=== PATIENT | male | born 1975 | race African-American/Black ===

== ENCOUNTER 2017-02-19 11:15 | Emergency (ER) | payer OTHER ==
[~2017-02-19 11:15] MED LIST: ADULT LOW DOSE81 MG PO; ASPIRIN 325MG325 MG PO; BRILINTA90 MG PO; COREG 3.125M3.125 MG PO; ELAVIL 10 MG TA10 MG PO; FENOFIBRATE54 MG PO; HUMALOG100 UNIT/3 SQ; LEVEMIR100 UNIT/1 SQ; NEURONTIN 300300 MG PO; SIMVASTATIN10 MG PO; ZANTAC150 MG PO; ZOCOR40 MG PO
[2017-04-23] MEDS ORDERED: METOPROLOL TART50 MG PO (15:19)
[2017-04-23] MEDS ORDERED: CRESTOR40 MG PO (15:22)
[2017-04-23] MEDS ORDERED: BASAGLAR SQ (15:23)
[2017-04-23] MEDS ORDERED: LISINOPRIL20 MG PO (15:36)
== END 2017-02-19 14:01 | disposition home or self-care (01) ==
LOC: ER1 11:15
DX: K02.9 Dental caries, unspecified (principal); L03.211 Cellulitis of face; E11.65 Type 2 diabetes mellitus with hyperglycemia; I10 Essential (primary) hypertension; Z95.5 Presence of coronary angioplasty implant and graft
CPT/HCPCS: 82962; 96372; 99283

== ENCOUNTER 2021-01-19 19:43 | Emergency (ER) | payer MEDICARE, OTHER ==
[~2021-01-19 19:43] MED LIST changes: +ASPIR 8181 MG PO; +AUGMENTIN 875-1 EACH PO; +BASAGLAR SQ; +BENTYL 10MG CAP10 MG PO; +CHRONULAC20 GM/30 M PO; +COLACE 100MG C100 MG PO; +COLACE100 MG PO; +CRESTOR40 MG PO; +CYCLOBENZAPRINE10 MG PO; +CYCLOBENZAPRINE5 MG PO; +DEX4 GLUCOSE4 GM PO; +FISH OIL 1,0001 EACH PO; +FISH OIL 1,2001 EAC1 PO; +IBU800 MG PO; +ISMO TAB 20 MG20 MG PO; +KEFLEX CAP 500500 MG PO; +LASIX40 MG PO; +LOPRESSOR 25 MG25 MG PO; +LOVENOX30 MG/0.3 SQ; +NEURONTIN600 MG PO; +NITROSTAT0.4 MG SL; +NOVOLOG100 UNIT/1 SC; +PRINIVIL5 MG PO; +TRESIBA FL100 UNIT/1 SQ; +VITAMIN C500 M4 PO; +VITAMIN D31250 MCG PO; +ZOFRAN 4 MG TAB4 MG PO
[2021-01-19 21:32] LABS: HEMOGLOBIN 15.1 gm/dl (14.0-17.5); RED BLOOD COUNT 5.04 M/UL (4.20-5.50); WHITE BLOOD COUNT 6.3 K/UL (4.5-11.0)
[2021-01-19 21:50] LABS: BUN/CREATININE RATIO 14 (0-10)
[2021-01-19] MEDS ORDERED: DULCOLAX5 MG PO (22:10)
[2021-01-20] MEDS ORDERED: SILVADENE CREAM20 GM TOP (09:09)
[2021-01-20] MEDS ORDERED: BACTRIM DS TAB1 EACH PO (09:09)
[2021-01-20] MEDS ORDERED: MOTRIN IB200 MG PO (09:10)
[2021-01-20] MEDS ORDERED: AMMONIUM LACTA140 GM TP (09:10)
[2021-01-20] MEDS ORDERED: NOVOLOG FL100 UNIT/1 INJ (10:10)
[2021-01-20] MEDS ORDERED: CYCLOBENZAPRINE5 MG PO (10:19)
[2021-01-20] MEDS ORDERED: CRESTOR40 MG PO (10:21)
[2021-01-20] MEDS ORDERED: TRESIBA FL100 UNIT/1 SQ (17:38)
[2021-02-11] MEDS ORDERED: DOXYCYCLINE HY100 MG PO (11:13)
== END 2021-01-19 22:41 | disposition home or self-care (01) ==
LOC: ER1 19:43
PROVIDERS: Physician Assistant
DX: R10.84 Generalized abdominal pain (principal); N32.89 Other specified disorders of bladder; K59.00 Constipation, unspecified; M54.5 Low back pain; I25.2 Old myocardial infarction; E11.9 Type 2 diabetes mellitus without complications; Z79.4 Long term (current) use of insulin; Z79.899 Other long term (current) drug therapy
CPT/HCPCS: 80053; 81001; 83690; 85025; 99284; J2785

== ENCOUNTER 2021-01-20 04:21 | Observation (INO) | payer MEDICARE, OTHER ==
[~2021-01-20] VITALS: Ht 172.7 cm; Wt 86.2 kg
[~2021-01-20 04:21] MED LIST changes: +DULCOLAX5 MG PO
[2021-01-20 05:03] LABS: HEMOGLOBIN 15.2 gm/dl (14.0-17.5); RED BLOOD COUNT 5.04 M/UL (4.20-5.50); WHITE BLOOD COUNT 6.7 K/UL (4.5-11.0)
[2021-01-20 05:30] LABS: BUN/CREATININE RATIO 12 (0-10)
[2021-01-20] MEDS ORDERED: SILVADENE CREAM20 GM TOP (09:09)
[2021-01-20] MEDS ORDERED: BACTRIM DS TAB1 EACH PO (09:09)
[2021-01-20] MEDS ORDERED: AMMONIUM LACTA140 GM TP (09:10)
[2021-01-20] MEDS ORDERED: MOTRIN IB200 MG PO (09:10)
[2021-01-20] MEDS ORDERED: NOVOLOG FL100 UNIT/1 INJ (10:10)
[2021-01-20] MEDS ORDERED: CYCLOBENZAPRINE5 MG PO (10:19)
[2021-01-20] MEDS ORDERED: CRESTOR40 MG PO (10:21)
[2021-01-20] MEDS ORDERED: TRESIBA FL100 UNIT/1 SQ (17:38)
[2021-01-21 05:35] LABS: BUN/CREATININE RATIO 13 (0-10)
[2021-01-21 05:39] LABS: HEMOGLOBIN 13.8 gm/dl (14.0-17.5); RED BLOOD COUNT 4.8 M/UL (4.20-5.50); WHITE BLOOD COUNT 7.5 K/UL (4.5-11.0)
[2021-01-21] MEDS ORDERED: HUMALOG 10100 UNITS/ SC (17:27)
[2021-01-21] MEDS ORDERED: LANTUS INS100 UTS/M1 SC (17:27)
[2021-02-11] MEDS ORDERED: DOXYCYCLINE HY100 MG PO (11:13)
== END 2021-01-21 21:18 | disposition other institution (70) ==
LOC: ER1 04:21 → CDU 08:33 → MED SURG 4 08:33 → CDU 08:33 → MED SURG 4 15:26
PROVIDERS: Emergency Medicine; Internal Medicine Cardiovascular Disease; Physician Assistant Medical; ADMIT Internal Medicine
PROC: 4A023N7 Measurement of Cardiac Sampling and Pressure, Left Heart, Percutaneous Approach (ICD-10-PCS; principal; 2021-01-20)
PROC: B2111ZZ Fluoroscopy of Multiple Coronary Arteries using Low Osmolar Contrast (ICD-10-PCS; 2021-01-20)
PROC: B2151ZZ Fluoroscopy of Left Heart using Low Osmolar Contrast (ICD-10-PCS; 2021-01-20)
DX: I25.10 Atherosclerotic heart disease of native coronary artery without angina pectoris (principal); T82.855A Stenosis of coronary artery stent, initial encounter; I11.0 Hypertensive heart disease with heart failure; I50.22 Chronic systolic (congestive) heart failure; I25.5 Ischemic cardiomyopathy; E78.5 Hyperlipidemia, unspecified; R91.1 Solitary pulmonary nodule; K59.00 Constipation, unspecified; E11.65 Type 2 diabetes mellitus with hyperglycemia; E11.621 Type 2 diabetes mellitus with foot ulcer; L97.519 Non-pressure chronic ulcer of other part of right foot with unspecified severity; R59.9 Enlarged lymph nodes, unspecified; Z89.411 Acquired absence of right great toe; Z91.018 Allergy to other foods; Z87.891 Personal history of nicotine dependence; Z79.4 Long term (current) use of insulin; Z79.82 Long term (current) use of aspirin; Z20.822 Contact with and (suspected) exposure to COVID-19; Z95.5 Presence of coronary angioplasty implant and graft; Y83.2 Surgical operation with anastomosis, bypass or graft as the cause of abnormal reaction of the patient, or of later complication, without mention of misadventure at the time of the procedure
CPT/HCPCS: 36415; 71045; 71275; 78452; 80048; 80053; 80061; 82550; 82553; 82962; 83036; 83690; 83735; 83874; 84100; 84484; 85025; 85379; 85610; 85730; 93005; 93017; 93925; 94664; 94760; 96374; 96375; 99152; 99153; 99285; A9502; C1769; C1894; G0378; J1644; J2250; J2270; J2405; J2785; J3010; J7040; J7070; Q9967; U0002

== ENCOUNTER 2021-02-06 12:28 | Emergency (ER) | payer MEDICARE, OTHER ==
[~2021-02-06 12:28] MED LIST changes: +AMMONIUM LACTA140 GM TP; +BACTRIM DS TAB1 EACH PO; +HUMALOG 10100 UNITS/ SC; +LANTUS INS100 UTS/M1 SC; +MOTRIN IB200 MG PO; +NOVOLOG FL100 UNIT/1 INJ; +SILVADENE CREAM20 GM TOP
[2021-02-06 12:56] LABS: HEMOGLOBIN 9.8 gm/dl (14.0-17.5); RED BLOOD COUNT 3.34 M/UL (4.20-5.50); WHITE BLOOD COUNT 13.5 K/UL (4.5-11.0)
[2021-02-06 13:19] LABS: BUN/CREATININE RATIO 17 (0-10)
[2021-02-11] MEDS ORDERED: DOXYCYCLINE HY100 MG PO (11:13)
== END 2021-02-06 17:20 | disposition home or self-care (01) ==
LOC: ER1 12:28
PROVIDERS: Emergency Medicine
DX: R07.9 Chest pain, unspecified (principal); I25.10 Atherosclerotic heart disease of native coronary artery without angina pectoris; E11.9 Type 2 diabetes mellitus without complications; I10 Essential (primary) hypertension; Z95.1 Presence of aortocoronary bypass graft
CPT/HCPCS: 71045; 80053; 82550; 82553; 83690; 84484; 85025; 85610; 85730; 96374; 96375; 99285; J2270; J2405; Q9967

== ENCOUNTER 2021-02-09 12:51 | Observation (INO) | payer MEDICARE, OTHER ==
[~2021-02-09] VITALS: Ht 172.7 cm; Wt 80.3 kg
[2021-02-09 13:46] LABS: HEMOGLOBIN 10.4 gm/dl (14.0-17.5); RED BLOOD COUNT 3.66 M/UL (4.20-5.50); WHITE BLOOD COUNT 10.9 K/UL (4.5-11.0)
[2021-02-09 15:08] LABS: BUN/CREATININE RATIO 15 (0-10)
[2021-02-09] MEDS ORDERED: COLCHICINE0.6 M1 PO (19:50)
[2021-02-09] MEDS ORDERED: CLOPIDOGREL75 MG PO (19:50)
[2021-02-09] MEDS ORDERED: PROTONIX 40 MG40 M1 PO (19:51)
[2021-02-10 09:19] LABS: HEMOGLOBIN 9.5 gm/dl (14.0-17.5); WHITE BLOOD COUNT 8.8 K/UL (4.5-11.0)
[2021-02-10 09:27] LABS: RED BLOOD COUNT 3.25 M/UL (4.20-5.50)
[2021-02-10 09:34] LABS: BUN/CREATININE RATIO 15 (0-10)
[2021-02-10] MEDS ORDERED: NOVOLOG FL100 UNIT/1 INJ (21:57)
[2021-02-10] MEDS ORDERED: HYDROCODONE-AC1 EACH PO (21:58)
[2021-02-11 05:27] LABS: HEMOGLOBIN 9.8 gm/dl (14.0-17.5); RED BLOOD COUNT 3.38 M/UL (4.20-5.50); WHITE BLOOD COUNT 10.1 K/UL (4.5-11.0)
[2021-02-11 05:50] LABS: BUN/CREATININE RATIO 15 (0-10)
[2021-02-11] MEDS ORDERED: DOXYCYCLINE HY100 MG PO (11:13)
== END 2021-02-11 13:07 | disposition home or self-care (01) ==
LOC: ER1 12:51 → PROG CARE 18:27 → CDU 18:27 → PROG CARE 23:51
PROVIDERS: Emergency Medicine; ADMIT Internal Medicine
DX: J18.9 Pneumonia, unspecified organism (principal); J90 Pleural effusion, not elsewhere classified; E11.65 Type 2 diabetes mellitus with hyperglycemia; I25.10 Atherosclerotic heart disease of native coronary artery without angina pectoris; E11.40 Type 2 diabetes mellitus with diabetic neuropathy, unspecified; I10 Essential (primary) hypertension; E78.5 Hyperlipidemia, unspecified; R91.1 Solitary pulmonary nodule; I42.9 Cardiomyopathy, unspecified; M10.9 Gout, unspecified; Z20.822 Contact with and (suspected) exposure to COVID-19; Z95.1 Presence of aortocoronary bypass graft; Z91.018 Allergy to other foods; Z87.891 Personal history of nicotine dependence; Z87.19 Personal history of other diseases of the digestive system; Z89.431 Acquired absence of right foot; Z79.82 Long term (current) use of aspirin; Z79.02 Long term (current) use of antithrombotics/antiplatelets; Z79.4 Long term (current) use of insulin; Z79.899 Other long term (current) drug therapy
CPT/HCPCS: ECHO; 36415; 70450; 71045; 80053; 80202; 80307; 81001; 82550; 82553; 82962; 83605; 83735; 83874; 83880; 84443; 84484; 85025; 85379; 85610; 85730; 86140; 87040; 87086; 93005; 93270; 93306; 95816; 96372; 96374; 96375; 96376; 99285; G0378; J0692; J1650; J1885; J2405; J3370; J7030; J7050; J7070; Q9967; U0002

== ENCOUNTER 2021-10-16 12:27 | Observation (INO) | payer MEDICARE, OTHER ==
[~2021-10-16] VITALS: Ht 172.7 cm; Wt 86.2 kg
[~2021-10-16 12:27] MED LIST changes: +CLOPIDOGREL75 MG PO; +COLCHICINE0.6 M1 PO; +DOXYCYCLINE HY100 MG PO; -ELAVIL 10 MG TA10 MG PO; +HYDROCODONE-AC1 EACH PO; +PROTONIX 40 MG40 M1 PO
[2021-10-16 13:51] LABS: HEMOGLOBIN 15.4 gm/dl (14.0-17.5); RED BLOOD COUNT 5.24 M/UL (4.20-5.50); WHITE BLOOD COUNT 9.9 K/UL (4.5-11.0)
[2021-10-16 14:52] LABS: BUN/CREATININE RATIO 19 (0-10)
[2021-10-17 00:55] LABS: HEMOGLOBIN 14.9 gm/dl (14.0-17.5); RED BLOOD COUNT 5.07 M/UL (4.20-5.50)
[2021-10-17 01:33] LABS: BUN/CREATININE RATIO 20 (0-10)
[2021-10-17] MEDS ORDERED: LASIX40 MG PO (10:19)
[2021-10-17] MEDS ORDERED: CRESTOR40 MG PO (10:21)
[2021-10-17] MEDS ORDERED: LOPRESSOR 25 MG25 MG PO (17:35)
[2021-10-17] MEDS ORDERED: TRESIBA FL100 UNIT/1 SQ (17:38)
[2021-10-17] MEDS ORDERED: HUMALOG100 UNIT/3 INJ (21:57)
[2021-10-17] MEDS ORDERED: AMITRIPTYLINE H10 MG PO (22:27)
[2021-10-18 03:32] LABS: HEMOGLOBIN 14.6 gm/dl (14.0-17.5); RED BLOOD COUNT 5.01 M/UL (4.20-5.50); WHITE BLOOD COUNT 11.7 K/UL (4.5-11.0)
[2021-10-18 04:26] LABS: BUN/CREATININE RATIO 22 (0-10)
[2021-10-18 10:23] LABS: BUN/CREATININE RATIO 20 (0-10)
[2021-10-19 07:21] LABS: HEMOGLOBIN 13.9 gm/dl (14.0-17.5); RED BLOOD COUNT 4.92 M/UL (4.20-5.50)
[2021-10-19 07:24] LABS: WHITE BLOOD COUNT 8.4 K/UL (4.5-11.0)
[2021-10-19 07:48] LABS: BUN/CREATININE RATIO 24 (0-10)
== END 2021-10-19 11:32 | disposition home or self-care (01) ==
LOC: ER1 12:27 → CDU 10-17 08:29 → MED SURG 4 10-18 19:19
PROVIDERS: Family Medicine; Internal Medicine; Physician Assistant Medical; Student in an Organized Health Care Education/Training Program; ADMIT Internal Medicine
DX: R07.89 Other chest pain (principal); E11.65 Type 2 diabetes mellitus with hyperglycemia; E87.6 Hypokalemia; I25.10 Atherosclerotic heart disease of native coronary artery without angina pectoris; I10 Essential (primary) hypertension; E78.5 Hyperlipidemia, unspecified; I42.9 Cardiomyopathy, unspecified; E11.40 Type 2 diabetes mellitus with diabetic neuropathy, unspecified; R91.1 Solitary pulmonary nodule; M10.9 Gout, unspecified; K21.9 Gastro-esophageal reflux disease without esophagitis; F12.90 Cannabis use, unspecified, uncomplicated; Z20.822 Contact with and (suspected) exposure to COVID-19; Z95.1 Presence of aortocoronary bypass graft; Z87.19 Personal history of other diseases of the digestive system; Z91.09 Other allergy status, other than to drugs and biological substances; Z87.891 Personal history of nicotine dependence; Z89.411 Acquired absence of right great toe; Z96.1 Presence of intraocular lens; Z79.82 Long term (current) use of aspirin; Z79.4 Long term (current) use of insulin; Z79.899 Other long term (current) drug therapy
CPT/HCPCS: 36415; 36600; 70450; 71045; 71250; 80048; 80053; 80307; 81001; 82140; 82550; 82553; 82803; 82962; 83690; 83735; 83874; 84484; 85025; 85027; 87040; 93005; 96372; 96376; 99285; G0378; J0696; J1630; J1650; J2270; J2405; J2550; J2765; U0002

== ENCOUNTER → 2022-05-29 | Outpatient (CLI) | payer MEDICARE, OTHER ==
[~2022-05-29] MED LIST changes: +AMITRIPTYLINE H10 MG PO; +HUMALOG100 UNIT/3 INJ
== END | disposition home or self-care (01) ==
LOC: WCC 06:35
PROC: 0JBN0ZZ Excision of Right Lower Leg Subcutaneous Tissue and Fascia, Open Approach (ICD-10-PCS; principal; 2022-05-29)
DX: S81.801A Unspecified open wound, right lower leg, initial encounter (principal); L02.415 Cutaneous abscess of right lower limb; E11.65 Type 2 diabetes mellitus with hyperglycemia; I11.0 Hypertensive heart disease with heart failure; I50.9 Heart failure, unspecified; I25.10 Atherosclerotic heart disease of native coronary artery without angina pectoris; E11.40 Type 2 diabetes mellitus with diabetic neuropathy, unspecified; I25.2 Old myocardial infarction; Z79.4 Long term (current) use of insulin; Z79.899 Other long term (current) drug therapy; Z87.891 Personal history of nicotine dependence; Z91.19 Patient's noncompliance with other medical treatment and regimen; Z95.1 Presence of aortocoronary bypass graft; Z95.5 Presence of coronary angioplasty implant and graft; X58.XXXA Exposure to other specified factors, initial encounter